=== PATIENT | male | born 1990 | race Caucasian/White ===

== ENCOUNTER 2022-10-22 10:36 | Inpatient (IN) | payer OTHER, SELFPAY ==
--- NOTE | ~2022-10-22 | CT_ITS ---
EXAMINATION: CT ABDOMEN AND PELVIS WITH CONTRAST CLINICAL INFORMATION: Right lower quadrant pain COMPARISON: None TECHNIQUE: Multidetector volumetric images were obtained from the superior aspect of the liver through the pubic symphysis following administration 85 mL of Omnipaque 350 intravenous contrast. Sagittal and coronal reformatted images were obtained on the technologist's workstation. Oral contrast: No This CT examination was performed using dose optimization techniques as appropriate, variously including the following: *Automated exposure control *Adjustment of mA and/or kV according to patient size (this includes techniques or standardized protocols for targeted exams where dose is matched to indication/reason for exam; i.e. extremities or head) *Use of iterative reconstruction technique DLP: 692 mGy-cm FINDINGS: LUNG BASES: The visualized lung bases are unremarkable. LIVER, GALLBLADDER, AND BILIARY TREE: Liver is prominent at 20 cm cephalocaudad. No focal masses. No intrahepatic biliary dilatation.. The gallbladder is unremarkable with no evidence of radiopaque gallstones, gallbladder wall thickening, or obvious pericholecystic inflammatory changes. PANCREAS: Unremarkable. SPLEEN: Spleen is prominent at 16 cm AP. ADRENAL GLANDS: Unremarkable. KIDNEYS AND URETERS: The kidneys are normal in size, shape, and attenuation. No hydronephrosis, hydroureter, or calculi seen. No perinephric stranding. BLADDER: Unremarkable. GASTROINTESTINAL TRACT: Abnormal. The appendix is distended at 13 mm and indurated and inflamed. Periappendiceal induration noted. The appendix is retrocecal. Findings are consistent with acute appendicitis. Adjacent drainable fluid collections are not seen. ABDOMINAL WALL: No significant hernia is appreciated. LYMPH NODES: Normal. VASCULAR: Unremarkable. PELVIC VISCERA: Unremarkable. OSSEOUS STRUCTURES: Unremarkable. CT/CT abdomen pelvis w IV con IMPRESSION: Acute appendicitis. No abscess collection seen. Results will be telephoned into the emergency room.
[2022-10-22 11:13] VITALS: BP 139/85; PULSE 102; RESP 18; TEMP 37.2; O2SAT 98; BMI 29.0
--- NOTE | 2022-10-22 11:13 | ED_ITS ---
HPI - Abdominal Pain General Chief Complaint: Abdominal Pain <MIREILLE Angel - Last Filed: 10/22/22 11:17> Stated Complaint: Appendicitis sent by urgent care <MIREILLE Angel - Last Filed: 10/22/22 11:17> Time Seen by Provider: 10/22/22 11:24 <MIREILLE Angel - Last Filed: 10/22/22 11:17> Source: patient <Steph Peng NP - Last Filed: 10/22/22 16:12> Mode of arrival: ambulatory <Steph Peng NP - Last Filed: 10/22/22 16:12> Limitations: no limitations <Steph Peng NP - Last Filed: 10/22/22 16:12> History of Present Illness HPI narrative: 32-year-old male here with right lower quadrant abdominal pain nausea and temperature 100.1 degrees at home which began at 05:00 o'clock this morning. No vomiting, diarrhea, constipation, urinary symptoms. Patient last had energy drink at 7 day. Last food was last evening. Patient with no prior abdominal surgery history <Steph Peng NP - Last Filed: 10/22/22 16:12> Related Data Allergies/Adverse Reactions: Allergies Allergy/AdvReac Type Severity Reaction Status Date / Time No Known Allergies Allergy Verified 10/22/22 11:15 <MIREILLE Angel - Last Filed: 10/22/22 11:17> Review of Systems Review of Systems Yes all other systems are reviewed and are negative <SUZETTE Cooney Last Filed: 10/22/22 16:12> Constitutional: Reports no additional constitutional complaints, Denies body ache(s), Denies chills, Reports fever(s), Denies headache(s) and Denies weakness <Steph Peng NP - Last Filed: 10/22/22 16:12> Eyes: Reports no additional eye complaints and Denies change in vision <SUZETTE Cooney Last Filed: 10/22/22 16:12> Reports system reviewed and no additional complaints, except as documented, Denies dizziness, Denies headache(s), Denies nasal congestion, Denies nasal discharge and Denies neck pain <Steph Peng NP - Last Filed: 10/22/22 16:12> Cardiovascular: Reports no additional cardiovascular complaints, Denies chest pain, Denies leg edema and Denies dyspnea <Steph Peng NP - Last Filed: 10/22/22 16:12> Respiratory: Reports no additional respiratory complaints, Denies cough and Denies dyspnea <Steph Peng NP - Last Filed: 10/22/22 16:12> Gastrointestinal: Reports no additional gastrointestinal complaints, Reports abdominal pain, Denies diarrhea, Reports nausea and Denies vomiting <Steph Peng NP - Last Filed: 10/22/22 16:12> Genitourinary: Denies urinary incontinence <Steph Peng NP - Last Filed: 10/22/22 16:12> Musculoskeletal: Reports no additional musculoskeletal complaints, Denies back pain, Denies arthralgias, Denies joint swelling, Denies neck pain, Denies numbness and Denies tingling <Steph Peng NP - Last Filed: 10/22/22 16:12> Skin/Breast: Reports system reviewed and no additional complaints, except as docu and Denies rash <Steph Peng NP - Last Filed: 10/22/22 16:12> Reports system reviewed and no additional complaints, except as documented, Denies dizziness, Denies headache(s), Denies numbness, Denies tingling and Denies weakness <Steph Peng NP - Last Filed: 10/22/22 16:12> [facility] Past Medical History Attestation statement: The following information was validated with the patient. <Steph Peng NP - Last Filed: 10/22/22 16:12> Source: old records reviewed and nursing notes reviewed <Steph Peng NP - Last Filed: 10/22/22 16:12> Social History Social History: Social History Advance Directives: No <MIREILLE Angel - Last Filed: 10/22/22 11:17> Physical Exam ED Vital Signs: Vital Signs - 24 hr 10/22/22 11:13 10/22/22 12:10 Temperature 99 F 98.2 F Pulse Rate 102 H 99 Respiratory Rate 18 16 Blood Pressure 139/85 129/79 Pulse Oximetry 98 99 Oxygen Delivery Method Room Air Room Air BMI result Body Mass Index 29.0 <MIREILLE Angel - Last Filed: 10/22/22 11:17> Vital Signs - 24 hr 10/22/22 11:13 10/22/22 12:10 Temperature 99 F 98.2 F Pulse Rate 102 H 99 Respiratory Rate 18 16 Blood Pressure 139/85 129/79 Pulse Oximetry 98 99 Oxygen Delivery Method Room Air Room Air BMI result Body Mass Index 29.0 <Steph Peng NP - Last Filed: 10/22/22 16:12> Const General: cooperative, healthy appearing, comfortable and no acute distress <Steph Peng NP - Last Filed: 10/22/22 16:12> Orientation/consciousness: patient oriented x3 <Steph Peng NP - Last Filed: 10/22/22 16:12> Limitations: no limitations <Steph Peng NP - Last Filed: 10/22/22 16:12> HENMT Head: Yes normal to inspection <Steph Peng NP - Last Filed: 10/22/22 16:12> Ears: hearing grossly normal bilaterally <Steph Peng NP - Last Filed: 10/22/22 16:12> Eyes General: appearance normal, both eyes and all related structures <Steph Peng NP - Last Filed: 10/22/22 16:12> Pupils: Equal, round and reactive pupils present <Steph Peng NP - Last Filed: 10/22/22 16:12> Neck Neck: Yes normal visual inspection, Yes full ROM, Yes no lymphadenopathy and Yes no meningeal signs <Steph Peng NP - Last Filed: 10/22/22 16:12> Chest Chest palpation & inspection: normal inspection of the chest <Steph Peng NP - Last Filed: 10/22/22 16:12> Resp Effort & Inspection: normal respiratory effort <Steph Peng NP - Last Filed: 10/22/22 16:12> Auscultation: clear to auscultation bilaterally <Steph Peng NP - Last Filed: 10/22/22 16:12> Cardio Rate: regular rate <Steph Peng NP - Last Filed: 10/22/22 16:12> Rhythm: regular rhythm <Steph Peng NP - Last Filed: 10/22/22 16:12> Peripheral pulses: Peripheral pulses 2+ throughout <Steph Peng NP - Last Filed: 02/08 16:12> GI Inspection: Yes normal to inspection <Steph Peng NP - Last Filed: 10/22/22 16:12> Palpation (GI): Soft to palpation, Tenderness to palpation present (GI) in the RLQ and with rebound tenderness and Guarding due to palpation present (GI) <Steph Peng NP - Last Filed: 10/22/22 16:12> General: Yes no CVA tenderness <Steph Peng NP - Last Filed: 10/22/22 16:12> Back/Spine/Pelvis Back: no CVA tenderness <Steph Peng NP - Last Filed: 10/22/22 16:12> Thoracic/Lumbar Spine: thoracic and lumbar spine normal to inspection <Steph Peng NP - Last Filed: 10/22/22 16:12> Skin General skin exam: no rashes or lesions noted <Steph Peng NP - Last Filed: 10/22/22 16:12> Neuro General: patient oriented x3, moves all extremities and no meningeal signs <Steph Peng NP - Last Filed: 10/22/22 16:12> Cranial nerves: Yes Equal, round and reactive pupils present <SUZETTE Cooney Last F iled: 10/22/22 16:12> Cognition (Neuro): normal cognition <Steph Peng NP - Last Filed: 10/22/22 16:12> Gait exam (Neuro): Normal gait present <Steph Peng NP - Last Filed: 10/22/22 16:12> Extrem General: Yes normal to inspection, Yes no pedal edema and Yes no calf tenderness <Steph Peng NP - Last Filed: 10/22/22 16:12> Course Course Course Narrative: ANGELINA-- 32 year old male presenting to ED complaining of right lower quadrant pain fever T-max 101 degrees since last night. Sent in from Urgent Care for appendicitis rule out. Abdomen soft with right lower quadrant tenderness on exam, no rebound or guarding Labs, UA, blood cultures/lactic, IVF, CT ordered in triage <MIREILLE Angel - Last Filed: 10/22/22 11:17> Reevaluation(s) Reevaluation #1: 1450-CT concerning for acute appendicitis. At this time infection is suspected. Antibiotics ordered. Call out to General surgery to discuss <Steph Peng NP - Last Filed: 10/22/22 16:12> Medical Decision Making Medical Decision Making MDM Narrative: 32-year-old male here with right lower quadrant abdominal pain, nausea, low-grade fever at home with right lower quadrant tenderness on palpation with rebound and guarding Will need labs, UA, CT <Steph Peng NP - Last Filed: 10/22/22 16:12> Differential Diagnosis Differential Diagnoses: The differential diagnosis associated with the presentation includes <Steph Peng NP - Last Filed: 10/22/22 16:12> Appendicitis <Steph Peng NP - Last Filed: 10/22/22 16:12> Admission/Observation Consideration of admission/observation: Escalation of care including admission/observation considered <Steph Peng NP - Last Filed: 10/22/22 16:12> Patient was CT that shows acute appendicitis. Patient will need admission for general surgery consultation <Stehp Peng NP - Last Filed: 10/22/22 16:12> Consult Healthcare Provider Management of the patient was discussed with: Hospitalist <Steph Peng NP - Last Filed: 10/22/22 16:12> Spoke to Dr. Vang from General surgery. Patient will be admitted with IV antibiotics. At this time surgery on hold <Steph Peng NP - Last Filed: 10/22/22 16:12> Lab Data [facility] Lab Attestation statement: I reviewed the patient's lab results. <Steph Peng NP - Last Filed: 10/22/22 16:12> Result Diagrams: : 10/22/22 12:02 10/22/22 12:02 <MIREILLE Angel - Last Filed: 10/22/22 11:17> Labs: Lab Results 10/22/22 10/22/22 10/22/22 Range/Units 12:02 12:02 12:02 WBC 16.8 H (4.8-10.8) X10*3/uL RBC 4.99 (4.60-5.80) X10*6/uL Hgb 13.9 L (14.0-18.0) g/dl Hct 40.5 L (42.0-52.0) % MCV 81.2 (80.0-98.0) fL MCH 27.9 (27.0-33.0) pg MCHC 34.3 (31.0-36.0) g/dl RDW 13.2 (11.0-16.0) % Plt Count 198 (160-400) X10*3/uL MPV 9.5 (9.4-12.4) fL Immature Gran % (Auto) 0.5 H (0.0-0.4) % Neut % (Auto) 90.9 H (45-73) % Lymph % (Auto) 2.5 L (20-40) % [place] % (Auto) 6.0 (2-11) % Eos % (Auto) 0.0 (0-4) % Baso % (Auto) 0.1 (0-2) % Lymph # (Auto) 0.4 L (1.2-4.9) X10*3/uL [place] # (Auto) 1.0 (0.1-1.2) X10*3/uL Eos # (Auto) 0.0 (0.0-0.4) X10*3/uL Baso # (Auto) 0.0 (0.0-0.2) X10*3/uL Abs Immat Gran (auto) 0.08 H (0.00-0.03) X10*3/uL Absolute Neuts (auto) 15.3 H (2.0-8.3) x10*3/uL Absolute Nucleated RBC 0.000 (0.0-0.012) X10*3/uL Nucleated RBC % (auto) 0.0 (0.0-0.2) /100WBC Smear Tech's Comments VERIFIED Sodium 136 (135-145) mmol/L Potassium 3.9 (3.3-5.1) mmol/L Chloride 101 (96-108) mmol/L Carbon Dioxide 27 (22-29) mmol/L Anion Gap 12 (12-20) BUN 14 (9-16) mg/dL Creatinine 0.89 (0.5-1.4) mg/dL Estim Creat Clear Calc 150.8 Estimated GFR > 60 Random Glucose 119 H (60-115) mg/dL Lactic Acid 1.3 (0.5-2.0) mmol/L Calcium 9.9 (8.4-10.2) mg/dL Magnesium 2.0 (1.6-2.6) mg/dL Total Bilirubin 2.5 H (0.0-1.0) mg/dL Direct Bilirubin 0.6 H (0.0-0.5) mg/dL AST 19 (5-37) U/L ALT 20 (0-40) U/L Alkaline Phosphatase 59 (39-117) U/L Total Protein 7.7 (6.5-8.0) g/dL Albumin 5.1 H (3.5-5.0) g/dL Lipase 16 (8-78) U/L Urine Color Urine Appearance Urine pH (5.0-9.0) Ur Specific [place] (1.005-1.025) Urine Protein (Neg-Trace) mg/dL Urine Glucose (UA) (Negative) mg/dL Urine Ketones (Negative) mg/dL Urine Blood (Negative) Urine Nitrite (Negative) Ur Leukocyte Esterase (Negative) Urine RBC (0-2) /HPF Urine WBC (0-5) /HPF Ur Squamous Epith Cells (0-2) /HPF Urine Bacteria (None Seen) Hyaline Casts (0-2) /LPF COVID-19 (GÉNESIS) (Negative) COVID-19 Clin Com Influenza Type A (SUZANNE) (Negative) Influenza Type B (SUZANNE) (Negative) Influenza A & B Note 10/22/22 10/22/22 10/22/22 Range/Units 12:02 12:03 12:44 WBC (4.8-10.8) X10*3/uL RBC (4.60-5.80) X10*6/uL Hgb (14.0-18.0) g/dl Hct (42.0-52.0) % MCV (80.0-98.0) fL MCH (27.0-33.0) pg MCHC (31.0-36.0) g/dl RDW (11.0-16.0) % Plt Count (160-400) X10*3/uL MPV (9.4-12.4) fL Immature Gran % (Auto) (0.0-0.4) % Neut % (Auto) (45-73) % Lymph % (Auto) (20-40) % [place] % (Auto) (2-11) % Eos % (Auto) (0-4) % Baso % (Auto) (0-2) % Lymph # (Auto) (1.2-4.9) X10*3/uL [place] # (Auto) (0.1-1.2) X10*3/uL Eos # (Auto) (0.0-0.4) X10*3/uL Baso # (Auto) (0.0-0.2) X10*3/uL Abs Immat Gran (auto) (0.00-0.03) X10*3/uL Absolute Neuts (auto) (2.0-8.3) x10*3/uL Absolute Nucleated RBC (0.0-0.012) X10*3/uL Nucleated RBC % (auto) (0.0-0.2) /100WBC Smear Tech's Comments Sodium (135-145) mmol/L Potassium (3.3-5.1) mmol/L Chloride (96-108) mmol/L Carbon Dioxide (22-29) mmol/L Anion Gap (12-20) BUN (9-16) mg/dL Creatinine (0.5-1.4) mg/dL Estim Creat Clear Calc Estimated GFR Random Glucose (60-115) mg/dL Lactic Acid (0.5-2.0) mmol/L Calcium (8.4-10.2) mg/dL Magnesium (1.6-2.6) mg/dL Total Bilirubin (0.0-1.0) mg/dL Direct Bilirubin (0.0-0.5) mg/dL AST (5-37) U/L ALT (0-40) U/L Alkaline Phosphatase (39-117) U/L Total Protein (6.5-8.0) g/dL Albumin (3.5-5.0) g/dL Lipase (8-78) U/L Urine Color Yellow Urine Appearance Clear Urine pH 7.0 (5.0-9.0) Ur Specific [place] 1.020 (1.005-1.025) Urine Protein Negative (Neg-Trace) mg/dL Urine Glucose (UA) Negative (Negative) mg/dL Urine Ketones Negative (Negative) mg/dL Urine Blood Trace H (Negative) Urine Nitrite Negative (Negative) Ur Leukocyte Esterase Negative (Negative) Urine RBC 3-5 H (0-2) /HPF Urine WBC 0-5 (0-5) /HPF Ur Squamous Epith Cells 0-2 (0-2) /HPF Urine Bacteria None Seen (None Seen) Hyaline Casts 0-2 (0-2) /LPF COVID-19 (GÉNESIS) Negative (Negative) COVID-19 Clin Com See Note Influenza Type A (SUZANNE) Negative (Negative) Influenza Type B (SUZANNE) Negative (Negative) Influenza A & B Note See Note <MIREILLE Angel - Last Filed: 10/22/22 11:17> Lab Results 10/22/22 10/22/22 10/22/22 Range/Units 12:02 12:02 12:02 WBC 16.8 H (4.8-10.8) X10*3/uL RBC 4.99 (4.60-5.80) X10*6/uL Hgb 13.9 L (14.0-18.0) g/dl Hct 40.5 L (42.0-52.0) % MCV 81.2 (80.0-98.0) fL MCH 27.9 (27.0-33.0) pg MCHC 34.3 (31.0-36.0) g/dl RDW 13.2 (11.0-16.0) % Plt Count 198 (160-400) X10*3/uL MPV 9.5 (9.4-12.4) fL Immature Gran % (Auto) 0.5 H (0.0-0.4) % Neut % (Auto) 90.9 H (45-73) % Lymph % (Auto) 2.5 L (20-40) % [place] % (Auto) 6.0 (2-11) % Eos % (Auto) 0.0 (0-4) % Baso % (Auto) 0.1 (0-2) % Lymph # (Auto) 0.4 L (1.2-4.9) X10*3/uL [place] # (Auto) 1.0 (0.1-1.2) X10*3/uL Eos # (Auto) 0.0 (0.0-0.4) X10*3/uL Baso # (Auto) 0.0 (0.0-0.2) X10*3/uL Abs Immat Gran (auto) 0.08 H (0.00-0.03) X10*3/uL Absolute Neuts (auto) 15.3 H (2.0-8.3) x10*3/uL Absolute Nucleated RBC 0.000 (0.0-0.012) X10*3/uL Nucleated RBC % (auto) 0.0 (0.0-0.2) /100WBC Smear Tech's Comments VERIFIED Sodium 136 (135-145) mmol/L Potassium 3.9 (3.3-5.1) mmol/L Chloride 101 (96-108) mmol/L Carbon Dioxide 27 (22-29) mmol/L Anion Gap 12 (12-20) BUN 14 (9-16) mg/dL Creatinine 0.89 (0.5-1.4) mg/dL Estim Creat Clear Calc 150.8 Estimated GFR > 60 Random Glucose 119 H (60-115) mg/dL Lactic Acid 1.3 (0.5-2.0) mmol/L Calcium 9.9 (8.4-10.2) mg/dL Magnesium 2.0 (1.6-2.6) mg/dL Total Bilirubin 2.5 H (0.0-1.0) mg/dL Direct Bilirubin 0.6 H (0.0-0.5) mg/dL AST 19 (5-37) U/L ALT 20 (0-40) U/L Alkaline Phosphatase 59 (39-117) U/L Total Protein 7.7 (6.5-8.0) g/dL Albumin 5.1 H (3.5-5.0) g/dL Lipase 16 (8-78) U/L Urine Color Urine Appearance Urine pH (5.0-9.0) Ur Specific [place] (1.005-1.025) Urine Protein (Neg-Trace) mg/dL Urine Glucose (UA) (Negative) mg/dL Urine Ketones (Negative) mg/dL Urine Blood (Negative) Urine Nitrite (Negative) Ur Leukocyte Esterase (Negative) Urine RBC (0-2) /HPF Urine WBC (0-5) /HPF Ur Squamous Epith Cells (0-2) /HPF Urine Bacteria (None Seen) Hyaline Casts (0-2) /LPF COVID-19 (GÉNESIS) (Negative) COVID-19 Clin Com Influenza Type A (SUZANNE) (Negative) Influenza Type B (SUZANNE) (Negative) Influenza A & B Note 10/22/22 10/22/22 10/22/22 Range/Units 12:02 12:03 12:44 WBC (4.8-10.8) X10*3/uL RBC (4.60-5.80) X10*6/uL Hgb (14.0-18.0) g/dl Hct (42.0-52.0) % MCV (80.0-98.0) fL MCH (27.0-33.0) pg MCHC (31.0-36.0) g/dl RDW (11.0-16.0) % Plt Count (160-400) X10*3/uL MPV (9.4-12.4) fL Immature Gran % (Auto) (0.0-0.4) % Neut % (Auto) (45-73) % Lymph % (Auto) (20-40) % [place] % (Auto) (2-11) % Eos % (Auto) (0-4) % Baso % (Auto) (0-2) % Lymph # (Auto) (1.2-4.9) X10*3/uL [place] # (Auto) (0.1-1.2) X10*3/uL Eos # (Auto) (0.0-0.4) X10*3/uL Baso # (Auto) (0.0-0.2) X10*3/uL Abs Immat Gran (auto) (0.00-0.03) X10*3/uL Absolute Neuts (auto) (2.0-8.3) x10*3/uL Absolute Nucleated RBC (0.0-0.012) X10*3/uL Nucleated RBC % (auto) (0.0-0.2) /100WBC Smear Tech's Comments Sodium (135-145) mmol/L Potassium (3.3-5.1) mmol/L Chloride (96-108) mmol/L Carbon Dioxide (22-29) mmol/L Anion Gap (12-20) BUN (9-16) mg/dL Creatinine (0.5-1.4) mg/dL Estim Creat Clear Calc Estimated GFR Random Glucose (60-115) mg/dL Lactic Acid (0.5-2.0) mmol/L Calcium (8.4-10.2) mg/dL Magnesium (1.6-2.6) mg/dL Total Bilirubin (0.0-1.0) mg/dL Direct Bilirubin (0.0-0.5) mg/dL AST (5-37) U/L ALT (0-40) U/L Alkaline Phosphatase (39-117) U/L Total Protein (6.5-8.0) g/dL Albumin (3.5-5.0) g/dL Lipase (8-78) U/L Urine Color Yellow Urine Appearance Clear Urine pH 7.0 (5.0-9.0) Ur Specific [place] 1.020 (1.005-1.025) Urine Protein Negative (Neg-Trace) mg/dL Urine Glucose (UA) Negative (Negative) mg/dL Urine Ketones Negative (Negative) mg/dL Urine Blood Trace H (Negative) Urine Nitrite Negative (Negative) Ur Leukocyte Esterase Negative (Negative) Urine RBC 3-5 H (0-2) /HPF Urine WBC 0-5 (0-5) /HPF Ur Squamous Epith Cells 0-2 (0-2) /HPF Urine Bacteria None Seen (None Seen) Hyaline Casts 0-2 (0-2) /LPF COVID-19 (GÉNESIS) Negative (Negative) COVID-19 Clin Com See Note Influenza Type A (SUZANNE) Negative (Negative) Influenza Type B (SUZANNE) Negative (Negative) Influenza A & B Note See Note <Steph Peng NP - Last Filed: 10/22/22 16:12> Independent Interpretation I performed an independent interpretation of an: CT Scan (I Independently reviewed the CT scan which shows acute appendicitis) <Steph Peng NP - Last Filed: 10/22/22 16:12> Radiology Impression Discussion of test interpretation with radiology: I have reviewed the radiologist's reading. <Steph Peng NP - Last Filed: 10/22/22 16:12> Radiologist Impression: FINDINGS: LUNG BASES: The visualized lung bases are unremarkable.? LIVER, GALLBLADDER, AND BILIARY TREE: Liver is prominent at 20 cm cephalocaudad. No focal masses. No intrahepatic biliary dilatation.. The gallbladder is unremarkable with no evidence of radiopaque gallstones, gallbladder wall thickening, or obvious pericholecystic inflammatory changes.? PANCREAS: Unremarkable.? SPLEEN: Spleen is prominent at 16 cm AP.? ADRENAL GLANDS: Unremarkable.? KIDNEYS AND URETERS: The kidneys are normal in size, shape, and attenuation. No hydronephrosis, hydroureter, or calculi seen. No perinephric stranding. ? BLADDER: Unremarkable.? GASTROINTESTINAL TRACT: Abnormal. The appendix is distended at 13 mm and indurated and inflamed. Periappendiceal induration noted. The appendix is retrocecal. Findings are consistent with acute appendicitis. Adjacent drainable fluid collections are not seen.? ABDOMINAL WALL: No significant hernia is appreciated.? LYMPH NODES: Normal. VASCULAR: Unremarkable. PELVIC VISCERA: Unremarkable.? OSSEOUS STRUCTURES: Unremarkable.? CT/CT abdomen pelvis w IV con IMPRESSION: Acute appendicitis. No abscess collection seen. Results will be telephoned into the emergency room. ? <Steph Peng NP - Last Filed: 10/22/22 16:12> Independent Historian Clinical information obtained from an independent historian. History obtained from or confirmed by: Spouse <SUZETTE Cooney Last Filed: 10/22/22 16:12> Medications Administered Generic Name Dose Route Start Last Admin Trade Name Freq PRN Reason Stop Dose Admin Lactated Ringer's 1,000 mls @ 100 mls/hr 10/22/22 15:15 10/22/22 15:52 Lr IVCONT Not Given .Q10H JENNIFER Piperacillin Sod/Tazobactam 50 mls @ 100 mls/hr 10/22/22 16:00 10/22/22 15:45 Sod 3.375 gm/ Sodium Chloride IV 100 mls/hr Q6H JENNIFER Administration Lactated Ringer's 1,000 mls @ 100 mls/hr 10/22/22 15:30 10/22/22 15:48 Lr IVCONT 100 mls/hr .Q10H JENNIFER Administration Discontinued Medications Generic Name Dose Route Start Last Admin Trade Name Freq PRN Reason Stop Dose Admin Sodium Chloride 1,000 mls @ 999 mls/hr 10/22/22 11:15 10/22/22 15:00 Ns IV 10/22/22 12:15 Infused .Q1H1M JENNIFER Infusion Promethazine HCl 6.25 mg/ 50.25 mls @ 201 mls/hr 10/22/22 15:38 10/22/22 15:47 Sodium Chloride IV 10/22/22 15:39 201 mls/hr ONCE ONE Administration Iohexol 85 ml 10/22/22 13:30 10/22/22 13:30 Iohexol 350 Mg/Ml 100 Ml Infus..Btl IV 10/22/22 13:31 85 ml ONCE ONE Administration Morphine Sulfate 4 mg 10/22/22 12:19 10/22/22 13:02 Morphine Sulfate 4 Mg/Ml Cartridge IVPUSH 10/22/22 12:20 4 mg ONCE ONE Administration Protocol Ondansetron HCl 4 mg 10/22/22 11:15 10/22/22 13:02 Ondansetron Hcl 4 Mg/2 Ml Vial IVPUSH 10/22/22 11:16 4 mg ONCE ONE Administration Ondansetron HCl 4 mg 10/22/22 14:18 10/22/22 14:27 Ondansetron Hcl 4 Mg/2 Ml Vial IVPUSH 10/22/22 14:19 4 mg ONCE ONE Administration <MIREILLE Angel - Last Filed: 10/22/22 11:17> Medications Administered Generic Name Dose Route Start Last Admin Trade Name Freq PRN Reason Stop Dose Admin Lactated Ringer's 1,000 mls @ 100 mls/hr 10/22/22 15:15 10/22/22 15:52 Lr IVCONT Not Given .Q10H JENNIFER Piperacillin Sod/Tazobactam 50 mls @ 100 mls/hr 10/22/22 16:00 10/22/22 15:45 Sod 3.375 gm/ Sodium Chloride IV 100 mls/hr Q6H JENNIFER Administration Lactated Ringer's 1,000 mls @ 100 mls/hr 10/22/22 15:30 10/22/22 15:48 Lr IVCONT 100 mls/hr .Q10H JENNIFER Administration Discontinued Medications Generic Name Dose Route Start Last Admin Trade Name Freq PRN Reason Stop Dose Admin Sodium Chloride 1,000 mls @ 999 mls/hr 10/22/22 11:15 10/22/22 15:00 Ns IV 10/22/22 12:15 Infused .Q1H1M JENNIFER Infusion Promethazine HCl 6.25 mg/ 50.25 mls @ 201 mls/hr 10/22/22 15:38 10/22/22 15:47 Sodium Chloride IV 10/22/22 15:39 201 mls/hr ONCE ONE Administration Iohexol 85 ml 10/22/22 13:30 10/22/22 13:30 Iohexol 350 Mg/Ml 100 Ml Infus..Btl IV 10/22/22 13:31 85 ml ONCE ONE Administration Morphine Sulfate 4 mg 10/22/22 12:19 10/22/22 13:02 Morphine Sulfate 4 Mg/Ml Cartridge IVPUSH 10/22/22 12:20 4 mg ONCE ONE Administration Protocol Ondansetron HCl 4 mg 10/22/22 11:15 10/22/22 13:02 Ondansetron Hcl 4 Mg/2 Ml Vial IVPUSH 10/22/22 11:16 4 mg ONCE ONE Administration Ondansetron HCl 4 mg 10/22/22 14:18 10/22/22 14:27 Ondansetron Hcl 4 Mg/2 Ml Vial IVPUSH 10/22/22 14:19 4 mg ONCE ONE Administration <Steph Peng NP - Last Filed: 10/22/22 16:12> Discharge Plan Discharge Clinical Impression: Acute appendicitis, Leukocytosis <MIREILLE Angel - Last Filed: 10/22/22 11:17> Patient Disposition: Admitted As Inpatient <MIREILLE Angel - Last Filed: 10/22/22 11:17>
[2022-10-22] MEDS: 0.9 % Sodium Chloride 1,000 ML 999 ML IV (12:04)
[2022-10-22 12:10] VITALS: BP 129/79; PULSE 99; RESP 16; TEMP 36.8; O2SAT 99
[2022-10-22 12:13] LABS: Basophils Percent Auto 0.1 % (0-2); Hematocrit 40.5 % (42.0-52.0); Hemoglobin 13.9 g/dl (14.0-18.0); Imm Gran Abs Auto 0.08 X10*3/uL (0.00-0.03); Imm Gran Pct Auto 0.5 % (0.0-0.4); Lymphocytes Absolute Auto 0.4 X10*3/uL (1.2-4.9); Lymphocytes Percent Auto 2.5 % (20-40); MANUAL DIFF FLAG SCAN; Mean Corpuscular HGB Conc 34.3 g/dl (31.0-36.0); Mean Corpuscular Hemoglobin 27.9 pg (27.0-33.0); Mean Corpuscular Volume 81.2 fL (80.0-98.0); Mean Platelet Volume 9.5 fL (9.4-12.4); Neutrophils Absolute Auto 15.3 x10*3/uL (2.0-8.3); Neutrophils Percent Auto 90.9 % (45-73); Platelet Count 198 X10*3/uL (160-400); Red Cell Distribution Width 13.2 % (11.0-16.0); SCAN SMEAR FLAG 1; White Blood Count 16.8 X10*3/uL (4.8-10.8)
[2022-10-22 12:16] LABS: Red Blood Count 4.99 X10*6/uL (4.60-5.80)
[2022-10-22 12:22] LABS: Lactic Acid 1.3 mmol/L (0.5-2.0)
[2022-10-22 12:27] LABS: Alanine Aminotransferase 20 U/L (0-40); Albumin Level 5.1 g/dL (3.5-5.0); Alkaline Phosphatase 59 U/L (39-117); Anion Gap 12 (12-20); Aspartate Amino Transferase 19 U/L (5-37); Bilirubin Direct 0.6 mg/dL (0.0-0.5); Bilirubin Total 2.5 mg/dL (0.0-1.0); Blood Urea Nitrogen 14 mg/dL (9-16); Calcium 9.9 mg/dL (8.4-10.2); Carbon Dioxide 27 mmol/L (22-29); Chloride 101 mmol/L (96-108); Creatinine Clr Calc Pharmacy 150.8; Estimated Glomerular Filt Rate > 60; Glucose Random 119 mg/dL (60-115); Lipase 16 U/L (8-78); Potassium 3.9 mmol/L (3.3-5.1); Sodium 136 mmol/L (135-145); Total Protein 7.7 g/dL (6.5-8.0)
[2022-10-22 12:29] LABS: COVID-19 Test Negative (Negative); IDNOW Serial# 55D5AD1C
[2022-10-22 12:29] LABS: IDNOW Serial# 9DB6401D; Influenza A Negative (Negative); Influenza B2 Negative (Negative)
--- OUTSIDE RECORDS SUMMARY | 2022-10-22 12:37 | XMS_ITS ---
:1990 Author Care Team Providers Name Role Phone Mary Ellen Trevino Primary Care Provider Unavailable Allergies Code Code System Name Reaction Severity Status Onset NKDA ? Medications Name Status Start Date Stop Date ? ? amoxicillin 500 mg capsule Completed ? 10/22 TAKE 1 CAPSULE BY MOUTH EVERY 8 HOURS ibuprofen 800 mg tablet Completed ? 10/22/19 TAKE 1 TABLET BY MOUTH THREE TIMES DAILY WITH FOOD Problems No Known Problems Procedures None recorded. Results Lab Results None recorded. Past Encounters Encounter Date Diagnosis Provider 10/22/2022 Abdominal Pain Amadeo Ayala MD: [id number] [place] [address], Ph. [phone] Social History Tobacco Smoking Status Never Smoker Vaccine List Vaccine Type COVID-19, mRNA, LNP-S, PF, 30 mcg/0.3 mL dose ([email or web address]) 09/02/2021?0.3 ML 09/23/2021?0.3 ML Plan of Care Patient Instructions We recommend you go immediately to the nearest Emergency Department for further evaluation. We recommend that you go dir ectly there from here and that you do not eat or drink anything until after you have b een evaluated by the ER and cleared by them to eat and drink. Reminders Provider Appointments None recorded. ? ? Lab None recorded. ? ? Referral None recorded. ? ? Procedures None recorded. ? ? Surgeries None recorded. ? ? Imaging None recorded. ? ? Vitals Height Weight BMI Blood Pressure 6 ft 2 in 228 lbs 29.3 kg/m2 134/76 mm[Hg]
--- OUTSIDE RECORDS SUMMARY | 2022-10-22 12:37 | XMS_ITS | Encounter Summary ---
:1990 Author Reason for Visit Abdominal Pain right sided abdominal pain, elevated tem p x 5pm last night (started with less pain and getting worse) Assessment and Plan 1. Abdominal pain Concerened for Appendictitis Suggest transfer to ER but patient refus es EMS transfer and signed AMA Patient advised to go straight to the ER and will be taken by a friend Discussion Note: None recorded.Patient educational handouts: No information available. Plan of Care Patient Instructions We recommend [...] ? ? Imaging None recorded. ? ? Medications No Medications Reported Medications Administered None recorded. Vitals Height Weight BMI Blood Pressure 6 ft 2 in 227 lbs 16 oz 29.3 kg/m2 134/76 mm[Hg] Results Lab Results None recorded. Allergies Code Code System Name Reaction Severity Onset NKDA ? ? ? Problems No Known Problems Procedures None recorded. Vaccine List Vaccine Type COVID-19, mRNA, LNP-S, PF, 30 mcg/0.3 mL dose ([place]) 09/02/2021?0.3 ML 09/23/2021?0.3 ML Social History Tobacco Smoking Status Never Smoker What is your level of alcohol consumption? Occasional Do you or have you ever used smokeless Never used smokeless tobacco tobacco? How many times per week do you consume <1 time per week alcohol? Do you or have you ever used e-cigarettes Current user of el ectronic cigarettes or vape? Do you or have you ever used any other Y forms of tobacco or nicotine? Have you recently traveled abroad? N Do you use any illicit or recreational N drugs? Family History Relation Problem Onset Age of Age Notes Father Malignant neoplasm of brain (No Information) N/A (No Notes) Functional Status Unknown. Past Encounters Encounter Date Diagnosis Provider 10/22/2022 Abdominal Pain Amadeo Ayala MD: [id number] [facility], [place] [address], Ph. History of Present Illness ? Abdominal Pain Reported By: Patient Abdominal Pain: Location: RLQ. Quality: bairon p. Severity: moderate, pain level 8/10. Onset/Timing: worse. Context : no travel. Modifying Factors: movement, eating. Associated Symptoms: no nausea, no vomiting, no shortness of breath, fever, chills, decre ased appetite Review of Systems: ROS as noted in the HPI Review of Systems ? UC General Adult ROS Reported By: Patient Constitutional: Constitutional: fever, chill s Gastrointestinal: Gastrointestinal: abdominal pain, change in appetite Genitourinary: Genitourinary: no difficulty urinating, no dysuria, no increased frequency, no flank pain Physical Exam ? General Adult Exam Male Reported By: Patient Constitutional: Level of Distress: moderate distress Eyes: Lids and Conjunctivae: non-i njected. Pupils: PERRL. Sclerae: non-icteric Neck: Neck: supple Abdomen: Inspection and Palpation: no rebound tenderness, no CVA tenderness, RLQ tenderness, guarding Neurologic: Gait and Station: normal gai t
[2022-10-22 12:51] LABS: Appearance Urine Clear; Color Urine Yellow; Glucose Urine UA Negative (Negative); Leukocyte Esterase Urine Negative (Negative); Nitrite Urine Negative (Negative); UMIC TRIGGER UACC YES; Urine Blood Trace (Negative); Urine Ketones Negative (Negative); Urine Protein Negative (Neg-Trace)
[2022-10-22 12:51] LABS: SLIDE REVIEW VERIFIED
[2022-10-22 12:53] LABS: Bacteria Urine None Seen (None Seen); Hyaline Casts Urine 0-2 /LPF (0-2); Squamous Epithelial Cell Urine 0-2 /HPF (0-2); WBC Urine 0-5 /HPF (0-5)
[2022-10-22] MEDS: ondansetron HCL 4 MG/2 ML VIAL IVPUSH ×2 (13:02→14:27)
[2022-10-22] MEDS: Morphine Sulfate 4 MG/ML CARTRIDGE IVPUSH (13:02)
[2022-10-22] MEDS: iohexoL 350 MG/ML 100 ML INFUS..BTL 85 ML IV (13:30)
--- NOTE | 2022-10-22 15:07 | PM.HPGS ---
History of Present Illness History of Present Illness Date of Service: 10/24/22 Chief complaint: appendicitis Narrative: Carlos Silva is a 32 year old male here in the ER because of right-sided abdominal pain. He stated that this started around late last night. He says went to work at 06:00 a.m. this morning but he continued to have this pain so he went to an urgent care center and was sent to the ER. He had 1 episode of vomiting while in the ER. He denies any fever or chills but does state that he had some ?shaking? after he had IV contrast earlier. He says that he feels comfortable now. He says that he does not really have difficult pain unless he stands up and moves around. He does not have any primary care physician. He has no known medical problems. Review of Systems Constitutional: Constitutional: Denies chills and Denies fever(s) Cardiovascular: Cardiovascular: Denies chest pain, Denies dyspnea and Denies dyspnea on exertion Respiratory: Respiratory: Denies cough, Denies dyspnea and Denies dyspnea on exertion Gastrointestinal: Gastrointestinal: Denies hematochezia and Denies change in bowel habits Genitourinary: Genitourinary: Denies hematuria and Denies difficulty urinating Musculoskeletal: Musculoskeletal: Denies back pain and Denies limited range of motion Neurologic: Denies focal weakness and Denies convulsions Psychiatric: Psychiatric: Denies depression and Denies mood swings PMFSH Social History Social History Household Members: Spouse Housing: House Do you presently have visiting nurse or other home services: No Patient Tobacco Use Status: Current everyday Tobacco user e-Cigarette/Vaping Use: Currently Using [employer] service: No Current occupational status: employed Meds Allergies Allergy/AdvReac Type Severity Reaction Status Date / Time No Known Allergies Allergy Verified 10/22/22 11:15 Active Medications: Current Medications Piperacillin Sod/Tazobactam (Sod 3.375 gm/ Sodium Chloride) 50 mls @ 100 mls/hr IV ONCE ONE Stop: 10/22/22 15:20 Home Medications Medication Instructions Recorded Confirmed Last Taken Type No Known Home Meds 10/22/22 10/22/22 Unknown History Physical Exam Vital Signs: Vital Signs: Last Vital Signs Temp 98.2 F 10/22/22 12:10 Pulse 99 10/22/22 12:10 Resp 16 10/22/22 12:10 BP 129/79 10/22/22 12:10 Pulse Ox 99 10/22/22 12:10 O2 Del Method 10/22/22 12:10 BMI result Body Mass Index 29.0 Const: General: comfortable and no acute distress Orientation/consciousness: patient oriented x3 Neck: Neck: Yes no lymphadenopathy Resp: Auscultation: clear to auscultation bilaterally Cardio: Rhythm: regular rhythm GI: Other: Minimal tenderness on the right flank area, no guarding or rebound Palpation (GI): Soft to palpation, nontender and no guarding Neuro: General: patient oriented x3 Results Results Labs: Short CBC 10/22/22 Range/Units 12:02 WBC 16.8 H (4.8-10.8) X10*3/uL Hgb 13.9 L (14.0-18.0) g/dl Hct 40.5 L (42.0-52.0) % Plt Count 198 (160-400) X10*3/uL BMP 10/22/22 12:02 Sodium 136 Potassium 3.9 Chloride 101 Carbon Dioxide 27 BUN 14 Creatinine 0.89 Calcium 9.9 Liver Function 10/22/22 Range/Units 12:02 Total Bilirubin 2.5 H (0.0-1.0) mg/dL Direct Bilirubin 0.6 H (0.0-0.5) mg/dL AST 19 (5-37) U/L ALT 20 (0-40) U/L Alkaline Phosphatase 59 (39-117) U/L Albumin 5.1 H (3.5-5.0) g/dL Urine 10/22/22 Range/Units 12:44 Urine Color Yellow Urine Appearance Clear Urine pH 7.0 (5.0-9.0) Ur Specific [place] 1.020 (1.005-1.025) Urine Protein Negative (Neg-Trace) mg/dL Urine Glucose (UA) Negative (Negative) mg/dL Additional studies: Laboratory Results WBC 16.8 X10*3/uL (4.8-10.8) H 10/22/22 12:02 RBC 4.99 X10*6/uL (4.60-5.80) 10/22/22 12:02 Hgb 13.9 g/dl (14.0-18.0) L 10/22/22 12:02 Hct 40.5 % (42.0-52.0) L 10/22/22 12:02 MCV 81.2 fL (80.0-98.0) 10/22/22 12:02 MCH 27.9 pg (27.0-33.0) 10/22/22 12:02 MCHC 34.3 g/dl (31.0-36.0) 10/22/22 12:02 RDW 13.2 % (11.0-16.0) 10/22/22 12:02 Plt Count 198 X10*3/uL (160-400) 10/22/22 12:02 MPV 9.5 fL (9.4-12.4) 10/22/22 12:02 Immature Gran % (Auto) 0.5 % (0.0-0.4) H 10/22/22 12:02 Neut % (Auto) 90.9 % (45-73) H 10/22/22 12:02 Lymph % (Auto) 2.5 % (20-40) L 10/22/22 12:02 [place] % (Auto) 6.0 % (2-11) 10/22/22 12:02 Eos % (Auto) 0.0 % (0-4) 10/22/22 12:02 Baso % (Auto) 0.1 % (0-2) 10/22/22 12:02 Lymph # (Auto) 0.4 X10*3/uL (1.2-4.9) L 10/22/22 12:02 [place] # (Auto) 1.0 X10*3/uL (0.1-1.2) 10/22/22 12:02 Eos # (Auto) 0.0 X10*3/uL (0.0-0.4) 10/22/22 12:02 Baso # (Auto) 0.0 X10*3/uL (0.0-0.2) 10/22/22 12:02 Abs Immat Gran (auto) 0.08 X10*3/uL (0.00-0.03) H 10/22/22 12:02 Absolute Neuts (auto) 15.3 x10*3/uL (2.0-8.3) H 10/22/22 12:02 Absolute Nucleated RBC 0.000 X10*3/uL (0.0-0.012) 10/22/22 12:02 Nucleated RBC % (auto) 0.0 /100WBC (0.0-0.2) 10/22/22 12:02 Smear Tech's Comments VERIFIED 10/22/22 12:02 Sodium 136 mmol/L (135-145) 10/22/22 12:02 Potassium 3.9 mmol/L (3.3-5.1) 10/22/22 12:02 Chloride 101 mmol/L (96-108) 10/22/22 12:02 Carbon Dioxide 27 mmol/L (22-29) 10/22/22 12:02 Anion Gap 12 (12-20) 10/22/22 12:02 BUN 14 mg/dL (9-16) 10/22/22 12:02 Creatinine 0.89 mg/dL (0.5-1.4) 10/22/22 12:02 Estim Creat Clear Calc 150.8 10/22/22 12:02 Estimated GFR > 60 10/22/22 12:02 Random Glucose 119 mg/dL (60-115) H 10/22/22 12:02 Lactic Acid 1.3 mmol/L (0.5-2.0) 10/22/22 12:02 Calcium 9.9 mg/dL (8.4-10.2) 10/22/22 12:02 Magnesium 2.0 mg/dL (1.6-2.6) 10/22/22 12:02 Total Bilirubin 2.5 mg/dL (0.0-1.0) H 10/22/22 12:02 Direct Bilirubin 0.6 mg/dL (0.0-0.5) H 10/22/22 12:02 AST 19 U/L (5-37) 10/22/22 12:02 ALT 20 U/L (0-40) 10/22/22 12:02 Alkaline Phosphatase 59 U/L (39-117) 10/22/22 12:02 Total Protein 7.7 g/dL (6.5-8.0) 10/22/22 12:02 Albumin 5.1 g/dL (3.5-5.0) H 10/22/22 12:02 Lipase 16 U/L (8-78) 10/22/22 12:02 Urine Color Yellow 10/22/22 12:44 Urine Appearance Clear 10/22/22 12:44 Urine pH 7.0 (5.0-9.0) 10/22/22 12:44 Ur Specific [place] 1.020 (1.005-1.025) 10/22/22 12:44 Urine Protein Negative mg/dL (Neg-Trace) 10/22/22 12:44 Urine Glucose (UA) Negative mg/dL (Negative) 10/22/22 12:44 Urine Ketones Negative mg/dL (Negative) 10/22/22 12:44 Urine Blood Trace (Negative) H 10/22/22 12:44 Urine Nitrite Negative (Negative) 10/22/22 12:44 Ur Leukocyte Esterase Negative (Negative) 10/22/22 12:44 Urine RBC 3-5 /HPF (0-2) H 10/22/22 12:44 Urine WBC 0-5 /HPF (0-5) 10/22/22 12:44 Ur Squamous Epith Cells 0-2 /HPF (0-2) 10/22/22 12:44 Urine Bacteria None Seen (None Seen) 10/22/22 12:44 Hyaline Casts 0-2 /LPF (0-2) 10/22/22 12:44 COVID-19 (GÉNESIS) Negative (Negative) 10/22/22 12:02 COVID-19 Clin Com See Note 10/22/22 12:02 Influenza Type A (SUZANNE) Negative (Negative) 10/22/22 12:03 Influenza Type B (SUZANNE) Negative (Negative) 10/22/22 12:03 Influenza A & B Note See Note 10/22/22 12:03 Impressions Abdomen/Pelvis CT 10/22/22 13:36 IMPRESSION: Acute appendicitis. No abscess collection seen. Results will be telephoned into the emergency room. Assessment and Plan (1) Acute appendicitis: Status: Acute Plan His CAT scan shows thickening and distension of the appendix is partly retrocecal. This is consistent with acute appendicitis without any abscess. I therefore explained to him we can proceed with laparoscopic appendectomy and possible open appendectomy. I discussed the technique of this procedure. I reviewed the risks including but not limited to bleeding, infections, injury to bowel, abscess formation, blood clots, pneumonia, inherent risks of anesthesia. I did explain to him the option of nonoperative treatment with IV antibiotics. I did tell him that there is no guarantee that this will work. He does state that he needs to return to work soon and would like to avoid surgery especially as he has problems with immigration at this time. He stated that he would like to continue with the antibiotics for now. I did tell him that there is always a possibility that he may get worse. He says that he understands this. I told him that if he goes this route, I will need to evaluate him early in the morning and if I feel that he is not getting better, I would highly recommend going ahead with surgery. He says he understands this. He understands the risks of worsening infection with no surgical intervention. His Kristin was with him during the discussion. They both stated that he is undergoing a lot of mental stress because of his immigration issues at this time and stated that because of this, would like to avoid surgery. The both understand the risk of non improvement and rupture. His lactate was normal. Time Spent With Patient Time: Total time managing care of this patient today ____ minutes. Quality Stroke Does the patient have a stroke diagnosis?: No VTE Prior VTE?: No VTE Risk Level:: Medical - low VTE Device Contraindication: N/A - Device Ordered VTE Drug Contraindication: Treatment Not Indicated Procedures Date of Service Date of Service: 10/22/22
[2022-10-22] MEDS: Piperacillin Sodium/Tazobactam 3.375 GM in 0.9 % Sodium Chloride 50 ML IV ×2 (15:45→21:31)
[2022-10-22] MEDS: Lactated Ringers 1,000 ML 100 ML IVCONT ×2 (15:48→22:04)
[2022-10-22 16:17] VITALS: BP 106/40; PULSE 134; RESP 20; TEMP 38.2; O2SAT 93
--- NOTE | 2022-10-22 16:54 | PC.NURSE ---
patient alert, oriented x4. nausea with vomiting. given zofran with + effect. patient NPO except ice chips. IVF running per mar. able to make needs known, call [facility] within reach. family at the bedside
--- NOTE | 2022-10-22 17:27 | PM.EVENT ---
Event Note Date of Service: 10/22/22 Event Note: seen lisa times today now says he feels much better says he has pain only when he stands up abd soft, no guarding or rebound, mildly tender he still insists on not doing any surgery at this time he has concerns about work, and does not have insurance Kristin says he has been very anxious and stressed about immigration papers I reiterated to them multiple times that IV abx may not be adequate treatment he again stated that he would like to try IV abx only for at least tonight despite benign exam, I feel surgery is best option he understands risks of clinical worsening ok to have ice chips Time Spent With Patient Time: Total time managing care of this patient today ____ minutes.
--- NOTE | 2022-10-22 17:51 | PHA.MEDREC ---
Pharmacy Consult ? Medication Reconciliation Pharmacy has completed the medication reconciliation. Patient reports no prescription medication. Reports the occasional Excedrin only. Carley Valdez, PharmD
[2022-10-22 18:28] VITALS: BP 99/50; PULSE 127; RESP 20; TEMP 37.1; O2SAT 95
--- NOTE | 2022-10-22 20:15 | PC.NURSE ---
Nurse to nurse report given to Kayla C RN. Patient to be transported [place] [facility].
[2022-10-22 21:00] VITALS: BP 99/57; PULSE 120; RESP 20; TEMP 38.8; O2SAT 97
[2022-10-22] MEDS: Acetaminophen 1,000 MG/100 ML PIGGYBACK 400 MG IV (22:05)
[2022-10-22] MEDS: Lactated Ringers 1,000 ML 500 ML IV (22:11)
--- NOTE | 2022-10-22 22:15 | PC.NURSE ---
Addendum entered by Romi Bean RN 10/22/22 22:19: Surgeon was called at 21:12 regarding pt's vitals. Tylenol IV orderd and administered , Fluids bolus LR 1000 ml ordered and administered . Pt reports pain level #4 to RLQ,no N/V at this time . Antibiotic Zosyn administered as scheduled. Original Note: admitted from the ER TO 482 at 21:05 oral temp 101.8, HR 130, BP 99/57. DR Noe Chan was called at 21at
[2022-10-22 23:50] VITALS: BP 96/50; PULSE 117; RESP 18; TEMP 37.1; O2SAT 94
[2022-10-23] MEDS: Piperacillin Sodium/Tazobactam 3.375 GM in 0.9 % Sodium Chloride 50 ML IV ×4 (03:16→22:05)
[2022-10-23] MEDS: Lactated Ringers 1,000 ML 100 ML IVCONT ×3 (03:21→22:31)
[2022-10-23 04:00] VITALS: BP 96/52; PULSE 102; RESP 20; TEMP 36.9; O2SAT 95
[2022-10-23] MEDS: Acetaminophen 1,000 MG/100 ML PIGGYBACK 400 MG IV (04:05)
[2022-10-23 06:32] LABS: PLT CLUMP 1
[2022-10-23 06:34] LABS: Hematocrit 34.3 % (42.0-52.0); Hemoglobin 11.7 g/dl (14.0-18.0); Mean Corpuscular HGB Conc 34.1 g/dl (31.0-36.0); Mean Corpuscular Volume 82.1 fL (80.0-98.0); Red Blood Count 4.18 X10*6/uL (4.60-5.80); Red Cell Distribution Width 13.7 % (11.0-16.0)
[2022-10-23 06:36] LABS: White Blood Count 15.3 X10*3/uL (4.8-10.8)
[2022-10-23 06:54] LABS: Mean Platelet Volume 10.5 fL (9.4-12.4); Platelet Count 122 X10*3/uL (160-400)
[2022-10-23 07:26] LABS: Anion Gap 15 (12-20); Blood Urea Nitrogen 21 mg/dL (9-16); Calcium 8.3 mg/dL (8.4-10.2); Carbon Dioxide 24 mmol/L (22-29); Chloride 103 mmol/L (96-108); Creatinine Clr Calc Pharmacy 120.9; Estimated Glomerular Filt Rate > 60; Glucose Random 107 mg/dL (60-115); Potassium 3.8 mmol/L (3.3-5.1); Sodium 138 mmol/L (135-145)
[2022-10-23 08:00] VITALS: BP 118/56; PULSE 90; RESP 18; TEMP 36.9; O2SAT 96
--- NOTE | 2022-10-23 08:49 | MHC.CM.PN ---
Male 32 DX Appendicites Patient lives with his . He is employed; but does not have insurance. A financial consult has been sent. The patient is independent with all functional mobility. VAX x2. Declined HCP. DP home no services. Patient will transport via [facility] at discharge.
--- NOTE | 2022-10-23 08:54 | P.PNGS_ITS ---
Subjective Subjective Date of Service: 10/23/22 Interval history: Patient says that he feels much better this morning Says pain is a 2/10 compared to go to 8? yesterday Stated that he feels that the IV antibiotics have been helping a lot Physical Exam Vital Signs: Vital Signs: Last Vital Signs Temp 98.5 F 10/23/22 08:00 Pulse 90 10/23/22 08:00 Resp 18 10/23/22 08:00 BP 118/56 L 10/23/22 08:00 Pulse Ox 96 10/23/22 08:00 O2 Del Method 10/23/22 08:00 BMI result Body Mass Index 29.0 Const: Other: Looks well General: comfortable and no acute distress Resp: Effort & Inspection: normal respiratory effort Cardio: Rate: regular rate GI: Other: Very mild tenderness on the right flank area no guarding or rebound, no distension Palpation (GI): Soft to palpation and not firm Objective Data Active Medications Lactated Ringer's (Lr) 1,000 mls @ 100 mls/hr IVCONT .Q10H [facility] Last Admin: 10/23/22 00:21 Dose: Not Given Documented By: LINDA Non-Admin Reason: Duplicate Order Piperacillin Sod/Tazobactam (Sod 3.375 gm/ Sodium Chloride) 50 mls @ 100 mls/hr IV Q6H [facility] Last Infusion: 10/23/22 04:02 Dose: 0 mls/hr Documented By: LINDA Lactated Ringer's (Lr) 1,000 mls @ 100 mls/hr IVCONT .Q10H [facility] Last Admin: 10/23/22 03:21 Dose: 100 mls/hr Documented By: LINDA Acetaminophen (Ofirmev) 1,000 mg in 100 mls @ 400 mls/hr IV Q6H PRN PRN Reason: Fever >101 Last Infusion: 10/23/22 04:24 Dose: 0 mls/hr Documented By: LINDA Lactated Ringer's (Lr) 1,000 mls @ 999 mls/hr IV .Q1H1M [facility] Stop: 10/23/22 09:00 Morphine Sulfate (Morphine Sulfate 2 Mg/Ml Cartridge) 2 mg IVPUSH Q3H PRN; Protocol PRN Reason: Pain, Moderate (Pain Scale 4-6 Morphine Sulfate (Morphine Sulfate 4 Mg/Ml Cartridge) 3 mg IVPUSH Q3H PRN; Protocol PRN Reason: Pain, Severe (Pain Scale 7-10) Ondansetron HCl (Ondansetron Hcl 4 Mg/2 Ml Vial) 4 mg IVPUSH Q8H PRN PRN Reason: nausea Sodium Chloride (0.9 % Sodium Chloride Flush 3 Ml Syringe) 3 ml IVFLUSH QSHIFT JENN[facility] Last Admin: 10/23/22 00:57 Dose: Not Given Documented By: LINDA Non-Admin Reason: IV Running Labs CBC & Chem 7: 10/23/22 05:50 10/23/22 05:50 Labs: Laboratory Results - last 24 hr 10/22/22 10/22/22 10/22/22 12:02 12:02 12:02 MCV 81.2 MCH 27.9 MCHC 34.3 RDW 13.2 Plt Count 198 MPV 9.5 Immature Gran % (Auto) 0.5 H Neut % (Auto) 90.9 H Lymph % (Auto) 2.5 L [place] % (Auto) 6.0 Eos % (Auto) 0.0 Baso % (Auto) 0.1 Lymph # (Auto) 0.4 L [place] # (Auto) 1.0 Eos # (Auto) 0.0 Baso # (Auto) 0.0 Abs Immat Gran (auto) 0.08 H Absolute Neuts (auto) 15.3 H Absolute Nucleated RBC 0.000 Nucleated RBC % (auto) 0.0 Smear Tech's Comments VERIFIED Anion Gap 12 Estim Creat Clear Calc 150.8 Estimated GFR > 60 Random Glucose 119 H Lactic Acid 1.3 Calcium 9.9 Magnesium 2.0 Total Bilirubin 2.5 H Direct Bilirubin 0.6 H AST 19 ALT 20 Alkaline Phosphatase 59 Total Protein 7.7 Albumin 5.1 H Lipase 16 Urine Color Urine Appearance Urine pH Ur Specific [place] Urine Protein Urine Glucose (UA) Urine Ketones Urine Blood Urine Nitrite Ur Leukocyte Esterase Urine RBC Urine WBC Ur Squamous Epith Cells Urine Bacteria Hyaline Casts COVID-19 (GÉNESIS) COVID-19 Clin Com Influenza Type A (SUZANNE) Influenza Type B (SUZANNE) Influenza A & B Note 10/22/22 10/22/22 10/22/22 12:02 12:03 12:44 MCV MCH MCHC RDW Plt Count MPV Immature Gran % (Auto) Neut % (Auto) Lymph % (Auto) [place] % (Auto) Eos % (Auto) Baso % (Auto) Lymph # (Auto) [place] # (Auto) Eos # (Auto) Baso # (Auto) Abs Immat Gran (auto) Absolute Neuts (auto) Absolute Nucleated RBC Nucleated RBC % (auto) Smear Tech's Comments Anion Gap Estim Creat Clear Calc Estimated GFR Random Glucose Lactic Acid Calcium Magnesium Total Bilirubin Direct Bilirubin AST ALT Alkaline Phosphatase Total Protein Albumin Lipase Urine Color Yellow Urine Appearance Clear Urine pH 7.0 Ur Specific [place] 1.020 Urine Protein Negative Urine Glucose (UA) Negative Urine Ketones Negative Urine Blood Trace H Urine Nitrite Negative Ur Leukocyte Esterase Negative Urine RBC 3-5 H Urine WBC 0-5 Ur Squamous Epith Cells 0-2 Urine Bacteria None Seen Hyaline Casts 0-2 COVID-19 (GÉNESIS) Negative COVID-19 Clin Com See Note Influenza Type A (SUZANNE) Negative Influenza Type B (SUZANNE) Negative Influenza A & B Note See Note 10/23/22 10/23/22 05:50 05:50 MCV 82.1 MCH 28.0 MCHC 34.1 RDW 13.7 Plt Count 122 L D MPV 10.5 Immature Gran % (Auto) Neut % (Auto) Lymph % (Auto) [place] % (Auto) Eos % (Auto) Baso % (Auto) Lymph # (Auto) [place] # (Auto) Eos # (Auto) Baso # (Auto) Abs Immat Gran (auto) Absolute Neuts (auto) Absolute Nucleated RBC 0.000 Nucleated RBC % (auto) 0.0 Smear Tech's Comments Anion Gap 15 Estim Creat Clear Calc 120.9 Estimated GFR > 60 Random Glucose 107 Lactic Acid Calcium 8.3 L D Magnesium Total Bilirubin Direct Bilirubin AST ALT Alkaline Phosphatase Total Protein Albumin Lipase Urine Color Urine Appearance Urine pH Ur Specific [place] Urine Protein Urine Glucose (UA) Urine Ketones Urine Blood Urine Nitrite Ur Leukocyte Esterase Urine RBC Urine WBC Ur Squamous Epith Cells Urine Bacteria Hyaline Casts COVID-19 (GÉNESIS) COVID-19 Clin Com Influenza Type A (SUZANNE) Influenza Type B (SUZANNE) Influenza A & B Note Procedures Date of Service Date of Service: 10/23/22 Progress Note: A&P Assessment and plan (1) Acute appendicitis: Status: Acute Assessment and Plan: Patient subjectively much improved WBC a little lower Did have low-grade temperature last night but vital signs seem better now He wants to continue with IV antibiotics Says he would like to hold off on surgery much as possible for now I did tell him that this may still be possible if he worsens He says he understands the above but says that he does feel much better this morning IV antibiotics Time Spent With Patient Time: Total time managing care of this patient today ____ minutes. Quality Stroke Does the patient have a stroke diagnosis?: No VTE Prior VTE?: No VTE Risk Level:: Medical - low VTE Device Contraindication: N/A - Device Ordered VTE Drug Contraindication: Treatment Not Indicated
[2022-10-23] MEDS: 0.9 % Sodium Chloride Flush 3 ML SYRINGE IVFLUSH ×2 (09:09→15:17)
[2022-10-23] MEDS: Lactated Ringers 1,000 ML 999 ML IV (09:10)
--- NOTE | 2022-10-23 14:05 | PM.EVENT ---
Event Note Date of Service: 10/23/22 Event Note: The patient has been seen multiple times during the course of the day He continues to say he feels much better compared to yesterday He has is at a 2/10 and he says this is only when he presses on the right side He says he has little hungry He complains of some headache - Will try him on some ibuprofen for this Abdomen remained soft, no guarding rebound, tenderness to deep palpation on the right side He and his stated that they want to continue with IV antibiotics and non operative treatment for now The says that she feels that he has improved significantly compared to yesterday Will repeat labs in the morning Continue IV Zosyn Time Spent With Patient Time: Total time managing care of this patient today ____ minutes.
[2022-10-23] MEDS: Morphine Sulfate 2 MG/ML CARTRIDGE IVPUSH ×2 (14:09→19:34)
[2022-10-23] MEDS: ondansetron HCL 4 MG/2 ML VIAL IVPUSH (14:09)
[2022-10-23 15:15] VITALS: BP 118/64; PULSE 110; RESP 18; TEMP 37.4; O2SAT 96
[2022-10-23] MEDS: Melatonin 3 MG TABLET 6 MG PO (19:30)
[2022-10-23 23:43] VITALS: BP 108/54; PULSE 106; RESP 18; TEMP 37.2
[2022-10-24] MEDS: ondansetron HCL 4 MG/2 ML VIAL IVPUSH ×2 (00:40→08:52)
[2022-10-24] MEDS: Piperacillin Sodium/Tazobactam 3.375 GM in 0.9 % Sodium Chloride 50 ML IV ×4 (03:36→22:02)
[2022-10-24] MEDS: Morphine Sulfate 2 MG/ML CARTRIDGE IVPUSH ×2 (03:40→08:51)
[2022-10-24 06:49] LABS: MANUAL DIFF FLAG NO
[2022-10-24 06:55] LABS: Basophils Percent Auto 0.2 % (0-2); Eosinophils Percent Auto 0.3 % (0-4); Hematocrit 31.8 % (42.0-52.0); Hemoglobin 10.7 g/dl (14.0-18.0); Imm Gran Pct Auto 0.9 % (0.0-0.4); Lymphocytes Absolute Auto 0.5 X10*3/uL (1.2-4.9); Lymphocytes Percent Auto 4.1 % (20-40); Mean Corpuscular HGB Conc 33.6 g/dl (31.0-36.0); Mean Corpuscular Hemoglobin 27.7 pg (27.0-33.0); Mean Corpuscular Volume 82.4 fL (80.0-98.0); Mean Platelet Volume 10.4 fL (9.4-12.4); Monocytes Absolute Auto 0.6 X10*3/uL (0.1-1.2); Monocytes Percent Auto 5.5 % (2-11); Neutrophils Absolute Auto 10.3 x10*3/uL (2.0-8.3); Platelet Count 115 X10*3/uL (160-400); Red Blood Count 3.86 X10*6/uL (4.60-5.80); Red Cell Distribution Width 13.6 % (11.0-16.0); White Blood Count 11.6 X10*3/uL (4.8-10.8)
[2022-10-24 07:27] LABS: Anion Gap 12 (12-20); Blood Urea Nitrogen 13 mg/dL (9-16); Calcium 8.6 mg/dL (8.4-10.2); Carbon Dioxide 24 mmol/L (22-29); Chloride 105 mmol/L (96-108); Creatinine Clr Calc Pharmacy 169.9; Estimated Glomerular Filt Rate > 60; Glucose Random 90 mg/dL (60-115); Potassium 3.9 mmol/L (3.3-5.1); Sodium 137 mmol/L (135-145)
[2022-10-24 07:57] VITALS: BP 116/61; PULSE 77; RESP 20; TEMP 36.7; O2SAT 95
[2022-10-24] MEDS: Lactated Ringers 1,000 ML 100 ML IVCONT ×2 (08:43→20:29)
[2022-10-24] MEDS: 0.9 % Sodium Chloride Flush 3 ML SYRINGE IVFLUSH ×2 (08:43→16:44)
--- NOTE | 2022-10-24 09:44 | P.PNGS_ITS ---
Subjective Subjective Date of Service: 10/24/22 Interval history: Says he continues to feel better Pain much less Describes vomiting yesterday from headache Feels well this morning No fever Physical Exam Vital Signs: Vital Signs: Last Vital Signs Temp 98.1 F 10/24/22 07:57 Pulse 77 10/24/22 07:57 Resp 20 10/24/22 07:57 BP 116/61 10/24/22 07:57 Pulse Ox 95 10/24/22 07:57 O2 Del Method 10/24/22 07:57 BMI result Body Mass Index 29.0 Const: General: comfortable and no acute distress Resp: Effort & Inspection: normal respiratory effort Cardio: Rate: regular rate GI: Inspection: No distended Palpation (GI): Soft to palpation, not firm, T enderness to palpation present (GI) (Very minimal tenderness to deep palpation on the right flank area) and no guarding Objective Data Active Medications Piperacillin Sod/Tazobactam (Sod 3.375 gm/ Sodium Chloride) 50 mls @ 100 mls/hr IV Q6H [facility] Last Infusion: 10/24/22 04:20 Dose: 0 mls/hr Documented By: RADHA Lactated Ringer's (Lr) 1,000 mls @ 100 mls/hr IVCONT .Q10H [facility] Last Admin: 10/24/22 08:43 Dose: 100 mls/hr Documented By: JAMIE Acetaminophen ([facility]) 1,000 mg in 100 mls @ 400 mls/hr IV Q6H PRN PRN Reason: Fever >101 Last Infusion: 10/23/22 04:24 Dose: 0 mls/hr Documented By: LINDA Ibuprofen (Ibuprofen 400 Mg Tablet) 400 mg PO Q6H PRN PRN Reason: Headache Morphine Sulfate (Morphine Sulfate 2 Mg/Ml Cartridge) 2 mg IVPUSH Q3H PRN; Protocol PRN Reason: Pain, Moderate (Pain Scale 4-6 Last Admin: 10/24/22 08:51 Dose: 2 mg Documented By: JAMIE Morphine Sulfate (Morphine Sulfate 4 Mg/Ml Cartridge) 3 mg IVPUSH Q3H PRN; Protocol PRN Reason: Pain, Severe (Pain Scale 7-10) Ondansetron HCl (Ondansetron Hcl 4 Mg/2 Ml Vial) 4 mg IVPUSH Q8H PRN PRN Reason: nausea Last Admin: 10/24/22 08:52 Dose: 4 mg Documented By: JAMIE Sodium Chloride (0.9 % Sodium Chloride Flush 3 Ml Syringe) 3 ml IVFLUSH QSHIFT [facility] Last Admin: 10/24/22 08:43 Dose: 3 ml Documented By: JAMIE Labs 10/24/22 06:34 10/24/22 06:34 Labs: Laboratory Results - last 24 hr 10/24/22 10/24/22 06:34 06:34 MCV 82.4 MCH 27.7 MCHC 33.6 RDW 13.6 Plt Count 115 L MPV 10.4 Immature Gran % (Auto) 0.9 H Neut % (Auto) 89.0 H Lymph % (Auto) 4.1 L [place] % (Auto) 5.5 Eos % (Auto) 0.3 Baso % (Auto) 0.2 Lymph # (Auto) 0.5 L [place] # (Auto) 0.6 Eos # (Auto) 0.0 Baso # (Auto) 0.0 Abs Immat Gran (auto) 0.10 H Absolute Neuts (auto) 10.3 H Absolute Nucleated RBC 0.000 Nucleated RBC % (auto) 0.0 Anion Gap 12 Estim Creat Clear Calc 169.9 Estimated GFR > 60 Random Glucose 90 Calcium 8.6 Microbiology Microbiology Results: Microbiology 10/22/22 12:02 Blood Culture - Preliminary Blood - Venous No growth after 24 hours. 10/22/22 12:02 Blood Culture - Preliminary Blood - Venous No growth after 24 hours. Procedures Date of Service Date of Service: 10/24/22 Progress Note: A&P Assessment and plan (1) Acute appendicitis: Status: Acute Assessment and Plan: Patient does not want appendectomy at this time because of multiple concerns He continues to state he feels better and says that he has improved significantly Abdomen soft and benign, no guarding rebound Looks well WBC much improved Kristin at bedside - says she feels patient has been improving steadily Continue IV antibiotics Clear liquids Time Spent With Patient Time: Total time managing care of this patient today ____ minutes. Quality Stroke Does the patient have a stroke diagnosis?: No VTE Prior VTE?: No VTE Risk Level:: Medical - low VTE Device Contraindication: N/A - Device Ordered VTE Drug Contraindication: Treatment Not Indicated
--- NOTE | 2022-10-24 13:35 | MHC.CM.PN ---
DP home self care. via er. No dc today. Patient continues on IV ABX. He is tolerating a clear diet.
--- NOTE | 2022-10-24 15:57 | PM.EVENT ---
Event Note Date of Service: 10/24/22 Event Note: Seen multiple times today He continues to state he feels better Asking for food - says he is hungry Minimal abdominal pain if at all Abdomen very soft, no guarding rebound, minimal tenderness to deep palpation on the right side No fever Continue IV antibiotics Clear liquids Patient and state to hold off on any surgical intervention Time Spent With Patient Time: Total time managing care of this patient today ____ minutes.
[2022-10-24 16:00] VITALS: BP 122/63; PULSE 70; RESP 18; TEMP 36.7; O2SAT 98
[2022-10-24 19:24] VITALS: BP 122/59; PULSE 68; RESP 18; TEMP 37.1; O2SAT 97
[2022-10-24 23:30] VITALS: BP 104/55; PULSE 76; RESP 15; TEMP 36.4; O2SAT 97
[2022-10-25] MEDS: Piperacillin Sodium/Tazobactam 3.375 GM in 0.9 % Sodium Chloride 50 ML IV ×4 (03:44→22:12)
[2022-10-25 03:45] VITALS: BP 129/68; PULSE 89; RESP 15; TEMP 37.1; O2SAT 97
[2022-10-25] MEDS: Lactated Ringers 1,000 ML 100 ML IVCONT ×3 (03:47→22:16)
[2022-10-25 06:44] LABS: Hematocrit 30.3 % (42.0-52.0); Hemoglobin 10.5 g/dl (14.0-18.0); Mean Corpuscular HGB Conc 34.7 g/dl (31.0-36.0); Mean Corpuscular Hemoglobin 28.7 pg (27.0-33.0); Mean Corpuscular Volume 82.8 fL (80.0-98.0); Mean Platelet Volume 10.5 fL (9.4-12.4); Platelet Count 129 X10*3/uL (160-400); Red Blood Count 3.66 X10*6/uL (4.60-5.80); Red Cell Distribution Width 13.7 % (11.0-16.0); White Blood Count 6.7 X10*3/uL (4.8-10.8)
[2022-10-25 06:58] LABS: Anion Gap 12 (12-20); Blood Urea Nitrogen 12 mg/dL (9-16); Calcium 8.6 mg/dL (8.4-10.2); Carbon Dioxide 25 mmol/L (22-29); Chloride 107 mmol/L (96-108); Creatinine Clr Calc Pharmacy 163.6; Estimated Glomerular Filt Rate > 60; Glucose Random 85 mg/dL (60-115); Potassium 3.6 mmol/L (3.3-5.1); Sodium 140 mmol/L (135-145)
[2022-10-25 08:00] VITALS: BP 107/62; PULSE 61; RESP 18; TEMP 36.7; O2SAT 98
[2022-10-25] MEDS: 0.9 % Sodium Chloride Flush 3 ML SYRINGE IVFLUSH ×2 (09:39→16:23)
--- NOTE | 2022-10-25 09:57 | PM.PNGS ---
Subjective Subjective Date of Service: 10/25/22 Interval history: says he slept well continues to feel better denies signficant pain tolerating clears passing flatus Physical Exam Vital Signs: Vital Signs: Last Vital Signs Temp 98.0 F 10/25/22 08:00 Pulse 61 10/25/22 08:00 Resp 18 10/25/22 08:00 BP 107/62 10/25/22 08:00 Pulse Ox 98 10/25/22 08:00 O2 Del Method 10/25/22 08:00 BMI result Body Mass Index 29.0 Const: General: comfortable and no acute distress Resp: Effort & Inspection: normal respiratory effort Cardio: Rate: regular rate GI: Palpation (GI): Soft to palpation, not firm, nontender and no guarding Objective Data Active Medications Piperacillin Sod/Tazobactam (Sod 3.375 gm/ Sodium Chloride) 50 mls @ 100 mls/hr IV Q6H [facility] Last Admin: 10/25/22 09:38 Dose: 100 mls/hr Documented By: DARRION Lactated Ringer's (Lr) 1,000 mls @ 100 mls/hr IVCONT .Q10H [facility] Last Admin: 10/25/22 03:47 Dose: 100 mls/hr Documented By: LUCY-GIOVANY Acetaminophen ([facility]) 1,000 mg in 100 mls @ 400 mls/hr IV Q6H PRN PRN Reason: Fever >101 Last Infusion: 10/23/22 04:24 Dose: 0 mls/hr Documented By: LINDA Ibuprofen (Ibuprofen 400 Mg Tablet) 400 mg PO Q6H PRN PRN Reason: Headache Morphine Sulfate (Morphine Sulfate 2 Mg/Ml Cartridge) 2 mg IVPUSH Q3H PRN; Protocol PRN Reason: Pain, Moderate (Pain Scale 4-6 Last Admin: 10/24/22 08:51 Dose: 2 mg Documented By: JAMIE Morphine Sulfate (Morphine Sulfate 4 Mg/Ml Cartridge) 3 mg IVPUSH Q3H PRN; Protocol PRN Reason: Pain, Severe (Pain Scale 7-10) Ondansetron HCl (Ondansetron Hcl 4 Mg/2 Ml Vial) 4 mg IVPUSH Q8H PRN PRN Reason: nausea Last Admin: 10/24/22 08:52 Dose: 4 mg Documented By: JAMIE Sodium Chloride (0.9 % Sodium Chloride Flush 3 Ml Syringe) 3 ml IVFLUSH [facility] Last Admin: 10/25/22 09:39 Dose: 3 ml Documented By: DARRION Labs 10/25/22 06:01 10/25/22 06:01 Labs: Laboratory Results - last 24 hr 10/25/22 10/25/22 06:01 06:01 MCV 82.8 MCH 28.7 MCHC 34.7 RDW 13.7 Plt Count 129 L MPV 10.5 Absolute Nucleated RBC 0.000 Nucleated RBC % (auto) 0.0 Anion Gap 12 Estim Creat Clear Calc 163.6 Estimated GFR > 60 Random Glucose 85 Calcium 8.6 Microbiology Microbiology Results: Microbiology 10/22/22 12:02 Blood Culture - Preliminary Blood - Venous No growth after 48 hours. 10/22/22 12:02 Blood Culture - Preliminary Blood - Venous No growth after 48 hours. Procedures Date of Service Date of Service: 10/25/22 Progress Note: A&P Assessment and plan (1) Acute appendicitis: Status: Acute Assessment and Plan: he did not want surgery has improved significantly now seems asymptomatic WBC normal now exm very benign regular diet Time Spent With Patient Time: Total time managing care of this patient today ____ minutes. Quality Stroke Does the patient have a stroke diagnosis?: No VTE Prior VTE?: No VTE Risk Level:: Medical - low VTE Device Contraindication: N/A - Device Ordered VTE Drug Contraindication: Treatment Not Indicated
[2022-10-25 11:23] VITALS: BP 101/57; PULSE 66; RESP 18; TEMP 36.9; O2SAT 98
[2022-10-25 15:17] VITALS: BP 110/60; PULSE 67; RESP 18; TEMP 37.1; O2SAT 98
[2022-10-25 23:24] VITALS: BP 111/62; PULSE 71; RESP 14; TEMP 37.7; O2SAT 97
[2022-10-26] MEDS: Piperacillin Sodium/Tazobactam 3.375 GM in 0.9 % Sodium Chloride 50 ML IV ×2 (03:52→09:06)
[2022-10-26 07:37] VITALS: BP 121/68; PULSE 60; RESP 18; TEMP 36.6; O2SAT 96
[2022-10-26] MEDS: Lactated Ringers 1,000 ML 100 ML IVCONT (09:05)
--- NOTE | 2022-10-26 09:51 | PM.PNGS ---
Subjective Subjective Date of Service: 10/26/22 Interval history: continues to feel well denies abdl pain tolerating diet has flatus, BMs Physical Exam Vital Signs: Vital Signs: Last Vital Signs Temp 97.9 F 10/26/22 07:37 Pulse 60 10/26/22 07:37 Resp 18 10/26/22 07:37 BP 121/68 10/26/22 07:37 Pulse Ox 96 10/26/22 07:37 O2 Del Method 10/26/22 07:37 BMI result Body Mass Index 29.0 Const: General: comfortable and no acute distress Orientation/consciousness: patient oriented x3 Neck: Neck: Yes no lymphadenopathy Resp: Auscultation: clear to auscultation bilaterally Cardio: Rhythm: regular rhythm GI: Palpation (GI): Soft to palpation, nontender and no guarding Neuro: General: patient oriented x3 Objective Data Active Medications Piperacillin Sod/Tazobactam (Sod 3.375 gm/ Sodium Chloride) 50 mls @ 100 mls/hr IV Q6H [facility] Last Admin: 10/26/22 09:06 Dose: 100 mls/hr Documented By: STEPHEN Lactated Ringer's (Lr) 1,000 mls @ 100 mls/hr IVCONT .Q10H [facility] Last Admin: 10/26/22 09:05 Dose: 100 mls/hr Documented By: STEPHEN Ibuprofen (Ibuprofen 400 Mg Tablet) 400 mg PO Q6H PRN PRN Reason: Headache Morphine Sulfate (Morphine Sulfate 2 Mg/Ml Cartridge) 2 mg IVPUSH Q3H PRN; Protocol PRN Reason: Pain, Moderate (Pain Scale 4-6 Last Admin: 10/24/22 08:51 Dose: 2 mg Documented By: JAMIE Morphine Sulfate (Morphine Sulfate 4 Mg/Ml Cartridge) 3 mg IVPUSH Q3H PRN; Protocol PRN Reason: Pain, Severe (Pain Scale 7-10) Ondansetron HCl (Ondansetron Hcl 4 Mg/2 Ml Vial) 4 mg IVPUSH Q8H PRN PRN Reason: nausea Last Admin: 10/24/22 08:52 Dose: 4 mg Documented By: JAMIE Sodium Chloride (0.9 % Sodium Chloride Flush 3 Ml Syringe) 3 ml IVFLUSH QSHIFT [facility] Last Admin: 01/08/23 09:08 Dose: Not Given Documented By: STEPHEN Non-Admin Reason: IV Running Labs 10/25/22 06:01 10/25/22 06:01 Procedures Date of Service Date of Service: 10/26/22 Progress Note: A&P Assessment and plan (1) Acute appendicitis: Status: Acute Assessment and Plan: now asymptomatic treated with abx only as per pt request no abdl pain or tenderness no fever WBC normal appears to have responded well with nonoperative tx he wants to go home I explained possible recurrence, even worsening of infection/inflammation advised him to establish relationship with PCP ok to ffup in office PO Augmentin at bedside Time Spent With Patient Time: Total time managing care of this patient today ____ minutes. Quality Stroke Does the patient have a stroke diagnosis?: No VTE Prior VTE?: No VTE Risk Level:: Medical - low VTE Device Contraindication: N/A - Device Ordered VTE Drug Contraindication: Treatment Not Indicated
--- NOTE | 2022-10-26 10:09 | MHC.CM.PN ---
order home, self care. CM acknowledge.
--- NOTE | 2022-10-27 11:08 | P.DS_ITS ---
DS: Providers Provider Date of Service: 10/26/22 Date of admission: 10/22/22 15:14 Date of discharge: 10/26/22 Primary care physician: Justino Physician Attending physician on admission: Tello Vang Attending physician on discharge: Tello Vang DS: Diagnosis Discharge Diagnosis (1) Acute appendicitis: Status: Acute DS: Summary Hospital Course Hospital Course: HPI AT ADMISSION: aCrlos Silva is a 32 year old male here in the ER because of right-sided abdominal pain. He stated that this started around late last night. He says went to work at 06:00 a.m. this morning but he continued to have this pain so he went to an urgent care center and was sent to the ER. He had 1 episode of vomiting while in the ER. He denies any fever or chills but does state that he had some ?shaking? after he had IV contrast earlier. He says that he feels comfortable now. He says that he does not really have difficult pain unless he stands up and moves around. He does not have any primary care ph ysician. He has no known medical problems. CAT scan was performed which showed thickening and distention of the appendix, consistent with acute appendicitis without any abscess. He had a leukocytosis of 16.8. HOSPITAL COURSE: He was admitted to the surgical service for further treatment of the acute uncomplicated appendicitis. Treatment options were reviewed and he wanted to avoid surgery and elected to continue with IV abx and observation. It was discussed that if he worsened he would require surgical intervention. He was nontoxic appearing. Please see H&P for full details. He had an uncomplicated hospital stay. He had 5 days of IV antibiotic therapy with IV zosyn. He improved significantly over this time. His abdominal pain and tenderness improved and eventually resolved. His WBC count downtrended everyday and normalized. His vitals remained stable and afebrile. His diet was advanced to clear liquids and then solids as tolerated. On the day of discharge, he was tolerating a solid diet without any abdominal pain or abdominal tenderness. He felt ready for discharge. He was discharged to home on 10/26/22 in stable condition. He was discharged on a PO course of Augmentin. He is to follow up with Dr. Vang in office in 1 week. Status at Discharge Functional status at discharge: independent ambulation Overall status at discharge: patient is back to baseline Time Spent with Patient Time attestation: Total time managing care of this patient today ____ minutes. Discharge coordination time: Less than 30 minutes Quality: Safe Use of Opioids Does Pt have an Active Cancer Diagnosis on the Problem List?: No Quality: Stroke Does the patient have a stroke diagnosis?: No Physical Exam Vital Signs: Vital Signs: Last Vital Signs Temp 97.9 F 10/26/22 07:37 Pulse 60 10/26/22 07:37 Resp 18 10/26/22 07:37 BP 121/68 10/26/22 07:37 Pulse Ox 96 10/26/22 07:37 O2 Del Method 10/26/22 07:37 BMI result Body Mass Index 29.0 Const: General: no acute distress, well developed and alert Orientation/consciousness: patient oriented x3 Resp: Effort & Inspection: normal respiratory effort GI: Inspection: No distended Palpation (GI): Soft to palpation, nontender, no guarding and not rigid Skin: General skin exam: no rashes or lesions noted Neuro: General: patient oriented x3 DS: Data Data Completed and Pending Labs on day of discharge: Preliminary micro results at discharge 10/22/22 12:02 Blood Culture - Preliminary Blood - Venous No growth after 48 hours. 10/22/22 12:02 Blood Culture - Preliminary Blood - Venous No growth after 48 hours. Discharge Plan Discharge Anticipated Discharge Date/Time: 10/26/22 09:56 Patient Disposition: Home, Self-Care Discharge Diagnosis: appendicitis Referrals: Tello Vang MD [Physician] - 2 Weeks Physician,None [Primary Care Provider] - 1 Week Discharge Medications: New amoxicillin-pot clavulanate 875-125 mg tablet 1 tab PO BID Qty: 14 0RF Discharge Orders: Discharge Order (Routine); Ordered 10/26/22 Ordered By: Tello Vang Diet: Advance to usual diet Activity on Discharge: As tolerated Stand Alone Forms: Patient Portal Discharge page Care Plan Goals: monitor abdomen needs PCP Health Concerns: recent appendicitis, treated nonoperatively Plan of Treatment: oral abx Assessment: doing well Discharge Date/Time: 10/26/22 12:00
== END 2022-10-26 12:00 | disposition home or self-care (01) | DRG 395 ==
LOC: HO.ED 15:10 → HO.EDOVER 15:22 → HO.IMC 19:39
PROVIDERS: Physician Assistant; Physician Assistant Surgical; Admitting Provider Surgery; Emergency Provider Emergency Medicine Emergency Medical Services; Visit Provider Surgery
DX: K35.80 Unspecified acute appendicitis (principal); F17.210 Nicotine dependence, cigarettes, uncomplicated; Z20.822 Contact with and (suspected) exposure to COVID-19
CPT/HCPCS: 36415; 74177; 80048; 80076; 81001; 83605; 83690; 83735; 85025; 85027; 87040; 87502; 87635; 96361; 96374; 96375; 96376; 99285; J0131; J2270; J2405; J2543; J2550; Q9967

== ENCOUNTER → 2022-11-10 15:25 | Outpatient (BNVA) | payer OTHER, SELFPAY | PROVIDERS: Visit Provider Surgery | DX: K35.80 Unspecified acute appendicitis (principal) | CPT/HCPCS: 99212 ==